=== PATIENT | female | born 1980 | race Two or more races ===

== ENCOUNTER → 2025-01-26 | Emergency (ER) | payer OTHER ==
[~2025-01-26] VITALS: Ht 157.5 cm; Wt 72.6 kg
[~2025-01-26] MED LIST: ORPHENADRINE CITRATE 30 MG/ML AMPUL IM ONE
== END | disposition home or self-care (01) ==
LOC: ER 06:16
DX: M62.838 Other muscle spasm (principal); M51.369 Other intervertebral disc degeneration, lumbar region without mention of lumbar back pain or lower extremity pain

== ENCOUNTER 2025-02-23 07:57 | Emergency (ER) | payer OTHER ==
[~2025-02-23] VITALS: Ht 157.5 cm; Wt 82.6 kg
[2025-02-23] MEDS ORDERED: BUTALB/ACETAMINOPHEN/CAFFEINE 1 TAB TABLET PO ONE ×2 (08:40→08:45)
[2025-02-23] MEDS ORDERED: FAMOTIDINE/PF 20 MG/2 ML VIAL ONE (08:40)
[2025-02-23] MEDS ORDERED: FAMOtidine 10 MG/ML (4ML VIAL) IV PUSH ONE (08:45)
[2025-02-23] MEDS ORDERED: FAMOtidine 40 MG TABLET PO ONE (09:15)
[2025-02-23 09:19] LABS: HEMOGLOBIN 13.3 g/dL (12.0-15.00); MEAN CELL VOLUME 78.9 fL (80.00-100.00); MEAN CORPUSCULAR HEMOGLOBIN 26.9 pg (27.00-32.0); MEAN CORPUSCULAR HGB CONC 34.1 g/dl (32.0-36.0); PLATELET COUNT 294 K/uL (150-450); RED BLOOD COUNT 4.94 M/uL (4.00-6.00); RED CELL DISTRIBUTION WIDTH 13.3 % (11.5-14.5)
[2025-02-23] MEDS ORDERED: PEPCID AC20 MG PO (10:23)
[2025-02-23] MEDS ORDERED: BUTALBIT-ACETA1 EACH PO (10:23)
== END 2025-02-23 11:36 | disposition home or self-care (01) ==
LOC: ER 07:58
PROVIDERS: General Practice
DX: R51.9 Headache, unspecified (principal); Z20.822 Contact with and (suspected) exposure to COVID-19

== ENCOUNTER 2025-05-15 14:00 | Outpatient (CLI) | payer OTHER ==
[~2025-05-15 14:00] MED LIST changes: +BUTALBIT-ACETA1 EACH PO; -ORPHENADRINE CITRATE 30 MG/ML AMPUL IM ONE; +PEPCID AC20 MG PO
== END 2025-05-15 14:10 | disposition home or self-care (01) ==
LOC: PPH VACUNA 14:00
PROVIDERS: ATTEND Emergency Medicine Pediatric Emergency Medicine
DX: Z23 Encounter for immunization (principal)

== ENCOUNTER → 2025-05-25 | Emergency (ER) | payer OTHER ==
[~2025-05-25] VITALS: Ht 157.5 cm; Wt 89.8 kg
[~2025-05-25] MED LIST changes: +KETOROLAC TROMETHAMINE 30 MG VIAL IM ONE
== END | disposition home or self-care (01) ==
LOC: ER 08:40
DX: N94.6 Dysmenorrhea, unspecified (principal)

== ENCOUNTER 2025-06-19 08:12 | Emergency (ER) | payer OTHER ==
[~2025-06-19] VITALS: Ht 157.5 cm; Wt 68.0 kg
[~2025-06-19 08:12] MED LIST changes: -KETOROLAC TROMETHAMINE 30 MG VIAL IM ONE
[2025-06-19 08:24] VITALS: BP 138/75; O2SAT 99
[2025-06-19] MEDS ORDERED: KETOROLAC TROMETHAMINE 60 MG VIAL IM STA (09:32)
== END 2025-06-19 10:36 | disposition home or self-care (01) ==
LOC: ER 08:12
DX: R51.9 Headache, unspecified (principal); R42 Dizziness and giddiness; I10 Essential (primary) hypertension

== ENCOUNTER 2025-08-21 06:43 | Emergency (ER) | payer OTHER ==
[~2025-08-21] VITALS: Ht 157.5 cm; Wt 73.0 kg
[2025-08-21 07:20] VITALS: BP 128/83; O2SAT 97
[2025-08-21] MEDS ORDERED: HYOSCYAMINE SULFATE 0.125 MG TAB.SUBL SL ONE (07:45)
[2025-08-21] MEDS ORDERED: 0.9 % SODIUM CHLORIDE 1,000 ML IV ONE (07:45)
[2025-08-21] MEDS ORDERED: FAMOtidine 10 MG/ML (4ML VIAL) IV ONE (07:45)
[2025-08-21] MEDS ORDERED: HYOSCYAMINE SULFATE 0.125 MG TAB.SUBL ONE (08:06)
[2025-08-21] MEDS ORDERED: FAMOTIDINE/PF 20 MG/2 ML VIAL ONE (08:06)
[2025-08-21 08:11] LABS: BASO % 0.9 % (0.1-1.2); EOS # 0.11 (0.04-0.54); EOS % 1.1 % (0.7-7.0); LYMPH # 1.88 (1.18-3.74); LYMPH % 18.9 % (19.3-53.1); MEAN PLATELET VOLUME 10.30 fl (9.4-12.4); MONO # 0.94 (0.24-0.82); MONO % 9.4 % (4.7-12.5); NEUT # 6.86 (1.56-6.13); NEUT % 68.8 % (34.0-71.1); RED CELL DISTRIBUTION WIDTH 12.6 % (11.6-14.4)
[2025-08-21 08:43] LABS: ALT/SGPT 23 U/L (12-78); AST/SGOT 14 U/L (15-37); BILIRUBIN TOTAL 1.51 mg/dL (0.3-1.2); BUN CREA RATIO 18 (7.0-25.0); CREATININE SERUM 0.74 mg/dL (0.55-1.02); GFR 84.87; GLOBULINA 4.3 G/DL (2.4-3.5); GLUCOSE FASTING 131 mg/dL (65-100); HCG QUANTITATIVE < 1 mUI/mL (1-3); OSMOLALITY SERUM 281 MOSM/KG (275-295)
[2025-08-21 09:16] LABS: COVID-19 AG NEGATIVE (NEGATIVE)
[2025-08-21 09:20] LABS: URINE APPEARANCE Clear; URINE BILIRRUBIN Negative (NEGATIVE); URINE BLOOD Large; URINE COLOR Dark Yellow; URINE GLUCOSE Negative (NEGATIVE); URINE KETONE Negative (NEGATIVE); URINE LEUKOCYTE Moderate; URINE NITRATE Negative; URINE UROBILINOGEN 0.2 E.U./dl
[2025-08-21 09:22] LABS: URINE BACTERIA 389.9 uL (0.0-1933); URINE EPITHELIAL CELLS 2.7 uL (0.0-38.8); URINE RBC 1143.6 uL (0.0-20.8); URINE WBC 504.7 uL (0.0-23.2)
[2025-08-21 09:26] LABS: URINE CAST 1.31 uL (0.0-1.40); URINE PROTEIN 100 (NEGATIVE)
[2025-08-21] MEDS ORDERED: CEFTRIAXONE SODIUM 1,000 MG VIAL ONE (09:58)
[2025-08-21] MEDS ORDERED: CEFTRIAXONE SODIUM 1,000 MG VIAL IV ONE (10:00)
[2025-08-21] MEDS ORDERED: PROBIOTIC1 EAC2 PO (10:51)
[2025-08-21] MEDS ORDERED: BACTRIM DS TAB1 EACH PO (10:51)
[2025-08-21] MEDS ORDERED: LEVSIN/SL0.125 MG SL (10:51)
== END 2025-08-21 11:39 | disposition home or self-care (01) ==
LOC: ER 06:43
PROVIDERS: General Practice
DX: K52.89 Other specified noninfective gastroenteritis and colitis (principal); R10.13 Epigastric pain; R11.0 Nausea; Z20.822 Contact with and (suspected) exposure to COVID-19

== ENCOUNTER 2025-09-13 08:29 | Emergency (ER) | payer OTHER ==
[~2025-09-13] VITALS: Ht 157.5 cm; Wt 83.9 kg
[~2025-09-13 08:29] MED LIST changes: +BACTRIM DS TAB1 EACH PO; +LEVSIN/SL0.125 MG SL; +PROBIOTIC1 EAC2 PO
[2025-09-13] MEDS ORDERED: ONDANSETRON HCL 4 MG in 0.9 % SODIUM CHLORIDE 50 ML IV ONE (09:15)
[2025-09-13] MEDS ORDERED: FAMOtidine 10 MG/ML (4ML VIAL) IV PUSH ONE (09:15)
[2025-09-13] MEDS ORDERED: 0.9 % SODIUM CHLORIDE 1,000 ML IV SCH (09:15)
[2025-09-13] MEDS ORDERED: KETOROLAC TROMETHAMINE 15 MG VIAL IU ONE (09:15)
[2025-09-13 09:59] LABS: BASO % 0.7 % (0.1-1.2); EOS # 0.16 (0.04-0.54); EOS % 2.1 % (0.7-7.0); LYMPH # 1.81 (1.18-3.74); LYMPH % 23.5 % (19.3-53.1); MEAN PLATELET VOLUME 10.20 fl (9.4-12.4); MONO # 0.65 (0.24-0.82); MONO % 8.5 % (4.7-12.5); NEUT # 4.97 (1.56-6.13); NEUT % 64.5 % (34.0-71.1); RED CELL DISTRIBUTION WIDTH 12.7 % (11.6-14.4)
[2025-09-13 10:52] LABS: ALT/SGPT 30 U/L (12-78); AST/SGOT 20 U/L (15-37); BILIRUBIN TOTAL 0.91 mg/dL (0.3-1.2); BUN CREA RATIO 20 (7.0-25.0); CREATININE SERUM 0.69 mg/dL (0.55-1.02); GFR 92.00; GLOBULINA 3.7 G/DL (2.4-3.5); GLUCOSE FASTING 149 mg/dL (65-100); OSMOLALITY SERUM 285 MOSM/KG (275-295)
[2025-09-13 10:57] LABS: HCG QUANTITATIVE < 1 mUI/mL (1-3)
[2025-09-13] MEDS ORDERED: PEPCID AC20 MG PO (15:20)
[2025-09-13] MEDS ORDERED: DICY20TA PO (15:20)
== END 2025-09-13 15:58 | disposition home or self-care (01) ==
LOC: ER 08:29
PROVIDERS: General Practice
DX: R10.11 Right upper quadrant pain (principal); N20.0 Calculus of kidney